=== PATIENT | male | born 1990 | race Hispanic/Latino ===

== ENCOUNTER 2016-11-09 02:18 | Emergency (ER) | payer OTHER ==
[2016-11-09] MEDS ORDERED: Dicyclomine HCl 20 mg/2 ml Ampule ONE (03:05)
[2016-11-09 03:07] LABS: #Lymphocytes 1.1 thou/uL (1.20-3.40); #Monocytes 0.7 thou/uL (0.11-0.59); #Neutrophils 7.9 thou/uL (1.40-6.50); %Eosinophils 0.1 % (0.0-10.0); %Lymphocytes 11.3 % (21.0-51.0); %Monocytes 7.2 % (0.0-10.0); Hematocrit 51.8 % (42.0-52.0); Mean Platelet Volume 7.9 fL (7.4-10.4); Red Blood Cell (RBC) Count 5.63 mill/uL (4.70-6.10); White Blood Cell (WBC) Count 9.8 thou/uL (4.8-10.8)
[2016-11-09 03:34] LABS: ALT (SGPT) 27 U/L (8-55); AST (SGOT) 23 U/L (5-34); Alkaline Phosphatase 57 U/L (40-150); Anion Gap 14 mmol/L (10-20); BUN (Urea Nitrogen) 15 mg/dL (8.9-20.6); Bilirubin, Total 0.9 mg/dL (0.2-1.2); Calc. Creatinine Clearance 0 mL/min (70-130); Calcium 9.6 mg/dL (7.8-10.44); Carbon Dioxide 28 mmol/L (22-29); Chloride 96 mmol/L (98-107); Estimated GFR-MDRD 74; Globulin 3.1 g/dL (2.4-3.5); Lipase 16 U/L (8-78); Protein, Total 7.8 g/dL (6.0-8.3)
[2016-11-09] MEDS ORDERED: Ondansetron HCl/PF 4 MG/2 ML Vial ONE (04:23)
[2016-11-09] MEDS ORDERED: metroNIDAZOLE 250 MG TAB ONE (06:39)
[2016-11-09] MEDS ORDERED: Sulfameth/Trimethoprim DS 800-160mg TAB ONE (06:39)
--- NOTE | 2016-11-09 08:41 | ULT ---
PRELIMINARY REPORT/[facility]/EMERGENCY AFTER HOURS PROCEDURE: EXAM: US Abdomen Limited, Right Upper Quadrant EXAM DATE/TIME: Exam ordered 11/09/2016 3:50 AM CLINICAL HISTORY: 26 years old, male; Pain; Abdominal pain; Generalized TECHNIQUE: Real-time ultrasound of the right upper quadrant with image documentation. COMPARISON: No relevant prior studies available. FINDINGS: Liver: Unremarkable. No mass. No intrahepatic bile duct dilation. Gallbladder: Unremarkable. No gallstones. Common bile duct: Unremarkable as visualized. No stones. No dilation. Pancreas: Unremarkable as visualized. Right kidney: Unremarkable. No stones. No solid mass. No hydronephrosis. IMPRESSION: Normal right upper quadrant ultrasound. Thank you for allowing us to participate in the care of your patient. Dictated and Authenticated by: Santy Leon MD 11/09/2016 4:48 AM Central Time ([place] \T\ [place]) FINAL REPORT EMERGENCY AFTER HOURS STUDY ULTRASOUND ABDOMEN LIMITED: (RIGHT UPPER QUADRANT) HISTORY: 26-year-old male with generalized abdominal pain. FINDINGS: The gallbladder has normal wall thickness and has no evidence of gallstones or sludge. The hepatic echogenicity is normal. The right kidney has normal echogenicity and has no hydronephrosis. The pa ncreas is obscured by shadowing from bowel gas. There is no biliary dilation. The common duct alex fartun is 5 mm. This report agrees with the preliminary report by [facility]. IMPRESSION: 1. No pathology identified. 2. Pancreas not visualized. manuel [] POS: [facility]
--- NOTE | 2016-11-09 10:09 | CT ---
PRELIMINARY REPORT/[facility]/EMERGENCY AFTER HOURS PROCEDURE: EXAM: CT Abdomen and Pelvis With Intravenous Contrast CLINICAL HISTORY: 26 years old, male; Pain; Abdominal pain; Generalized TECHNIQUE: Axial computed tomography images of the abdomen and pelvis with intravenous contrast. Coronal reformatted images were created and reviewed. CONTRAST: 100 mL of ISOVUE administered intravenously. COMPARISON: US Gallbladder RUQ 11/09/2016 3:50:28 AM FINDINGS: Lower thorax: No acute findings. ABDOMEN: Liver: No acute findings. No mass. Gallbladder and bile ducts: No acute findings. No calcified stones. No ductal dilation. Pancreas: No acute findings. No mass. No ductal dilation. Spleen: No acute findings. No splenomegaly. Adrenals: No acute findings. No mass. Kidneys and ureters: No acute findings. No solid mass. No hydronephrosis. Stomach and bowel: No obstruction. Moderate wall thickening involving the cecum and ascending colon consistent with colitis. Mild wall thickening distal ileum consistent with enteritis. Mild small bow el distention may reflect reactive ileus. Appendix: No findings to suggest acute appendicitis. PELVIS: Bladder: Moderately distended. No mass. Reproductive: Unremarkable as visualized. ABDOMEN and PELVIS: Intraperitoneal space: No acute findings. No free air. No significant fluid collection. Bones/joints: No acute fracture. No dislocation. Soft tissues: No acute findings. Vasculature: No acute findings. No abdominal aortic aneurysm. Lymph nodes: No acute findings. No enlarged lymph nodes. IMPRESSION: Findings consistent with right sided enterocolitis, with infectious vs inflammatory etiologies most likely considerations. Distended bladder. Normal appendix. Thank you for allowing us to participate in the care of your patient. Dictated and Authenticated by: Sakshi Lora MD 11/09/2016 6:15 AM Central Time ([place] \T\ [place]) FINAL REPORT EMERGENCY AFTER HOURS STUDY CT ABDOMEN WITH CONTRAST CT PELVIS WITH CONTRAST: DATE: 11/09/16 TIME: 045 hours HISTORY: 26-year-old male with nausea, emesis, diarrhea, and generalized cramping abdominal pain, with fever and chills. TECHNIQUE: IV injection of iodinated contrast media: 100 mL Isovue. Oral contrast media: Not administered. FINDINGS: There is mural thickening and mural edema involving the cecum and entire ascending colon. The rest o f the colon is spared. Distal right ileum, including terminal ileum, is also involved by the mural e juan and mural thickening. The urinary bladder is distended, but has normal, thin breaux. The appendix, abdominal aorta, kidneys , adrenals, pancreas, liver, and spleen are normal. No evidence of small bowel obstruction. No free fluid or free air within abdominal cavity or pelvic cavity. Lung bases are clear. This report agrees with the preliminary report by [facility]. IMPRESSION: Evidence for right-sided enterocolitis, involving entire ascending colon and distal ileum. BOYD POS: [facility]
[2016-11-09] MEDS ORDERED: ISOVUE-370 76%-LOCM 1 ML ONE (16:46)
== END 2016-11-09 08:38 | disposition home or self-care (01) ==
LOC: ERS 02:18
DX: K52.9 Noninfective gastroenteritis and colitis, unspecified (principal); I10 Essential (primary) hypertension; F32.9 Major depressive disorder, single episode, unspecified
CPT/HCPCS: 74177; 76705; 80053; 83690; 85025; 96361; 96372; 96374; 96375; J2270; J2405